=== PATIENT | male | born 1960 | race Caucasian/White ===

== ENCOUNTER 2017-09-03 19:22 | Emergency (ER) | payer OTHER ==
[~2017-09-03] VITALS: Ht 180.3 cm; Wt 111.1 kg
[2017-09-03] MEDS ORDERED: ACETAMINOPHEN 500 MG TABLET PO ONE (19:45)
[2017-09-03] MEDS ORDERED: LISI10TA2 PO (19:50)
[2017-09-03] MEDS ORDERED: CLOP75TA PO (19:50)
[2017-09-03] MEDS ORDERED: ATORVASTATIN CA80 MG PO (19:50)
[2017-09-03] MEDS ORDERED: CARV6.252 PO (19:50)
--- NOTE | 2017-09-03 19:50 | PHYS DOC ---
Adult General Chief Complaint Chief Complaint: MECHANICAL FALL HPI HPI Patient is a 57 year old nail presents to the emergency department status post fall. Patient states he was working the back of his truck, pulling a greg, the greg slipped and he fell backwards out of the truck. He states he was approximate 3 feet in the air. He reports that he landed on his upper back and struck his head. He states he had no loss of consciousness. He presents to the emergency department with complaints of head pain, neck pain, bilateral shoulder pain and right hip discomfort. He did ambulate into the emergency department without difficulty. He was observed removing his pants in a standing position and fully weight-bearing on the right lower extremity as well as left lower extremity without apparent pain. Patient reports that his fall occurred approximately 8 hours prior to arrival in the emergency department. He states he drove back from [facility] and then drove himself to the hospital. Review of Systems Review of Systems Constitutional: Denies fever or chills [] Eyes: Denies change in visual acuity, redness, or eye pain [] HENT: Headache with contusion to occiput Respiratory: Denies cough or shortness of breath [] Cardiovascular: No additional information not addressed in HPI [] GI: Denies abdominal pain, nausea, vomiting, bloody stools or diarrhea [] : Denies dysuria or hematuria [] Musculoskeletal: The lateral shoulder pain, right hip pain Integument: Denies rash or skin lesions [] Neurologic: Denies headache, focal weakness or sensory changes [] Endocrine: Denies polyuria or polydipsia [] Current Medications Current Medications Current Medications Medications (Trade) Dose Ordered Sig/Ok Start Time Stop Time Status Last Admin Dose Admin Acetaminophen (Tylenol) 1,000 mg 1X ONCE 09/03/17 19:45 09/03/17 19:50 DC 09/03/17 20:10 1,000 MG Allergies Allergies Allergies Coded Allergies Type Severity Reaction Last Updated Verified No Known Drug Allergies 09/03/17 No Physical Exam Physical Exam Constitutional: Well developed, well nourished, no acute distress, non-toxic appearance. [] HENT: Normocephalic, 3 cm abrasion contusion to posterior occiput, no palpable fractures, no step-off., bilateral external ears normal, oropharynx moist, no oral exudates, nose normal. [] Eyes: PERRLA, EOMI without pain, conjunctiva normal, no discharge. [] Neck: Normal range of motion, no midline or paracervical tenderness, supple, no stridor. [] Cardiovascular:Heart rate regular rhythm, no murmur [] Lungs & Thorax: Atraumatic, Bilateral breath sounds clear to auscultation [] Abdomen: Atraumatic, Bowel sounds normal, soft, no tenderness, no masses, no pulsatile masses. [] Skin: Warm, dry, no erythema, abrasion occiput Back: Atraumatic No tenderness, no CVA tenderness. [] Extremities: Bilateral shoulder exam, range of motion limited by pain, there is no apparent trauma, no bony tenderness on exam. Remainder of upper extremity exam unremarkable. Bilateral hip exam, atraumatic, full range of motion without difficulty. No point tenderness. Bilateral knee and ankle exam unremarkable. Neurovascular intact distally. Neurologic: Alert and oriented X 3, normal motor function, normal sensory function, no focal deficits noted. [] Psychologic: Affect normal, judgement normal, mood normal. [] Current Patient Data Vital Signs Vital Signs Date Time Temp Pulse Resp B/P (MAP) Pulse Ox O2 Delivery O2 Flow Rate FiO2 09/03/17 20:10 80 16 99 09/03/17 19:39 98.1 142/92 (109) Room Air 98.1 EKG EKG [] Radiology/Procedures Radiology/Procedures Bi-Lateral 3 view shoulder x-rays[, two-view right hip x-ray, reviewed, no acute bony abnormalities CT head and cervical spine without contrast reviewed by Dr. Ornelas, radiologist , CT head negative, CT cervical spine no fracture subluxation of the cervical vertebra is identified Course & Med Decision Making Course & Med Decision Making Pertinent Labs and Imaging studies reviewed. (See chart for details) []Patient takes Plavix for cornea stent placement, CT head negative per radiologist. Patient does have chronic bilateral upper extremity and shoulder discomfort. He states that he doesn't have his chronic pain every day but seems to have been exacerbated by his fall today. Patient will be discharged home with Tylenol with Codeine one by mouth every 6 hours when necessary for pain # 10 no refills. He is to follow-up with primary care in 2-3 days, sooner proms rise. Patient was given closed head injury precautions and told return the emergency department his symptoms or concerns. Patient verbalizes understanding was stable condition on discharge. Dragon Disclaimer Dragon Disclaimer This electronic medical record was generated, in whole or in part, using a voice recognition dictation system. Departure Departure Impression: Primary Impression: Fall Additional Impression: Contusion of scalp Disposition: 01 HOME, SELF-CARE Condition: STABLE Referrals: NO PCP (PCP) Patient Instructions: Facial or Scalp Contusion, Fall Prevention and Home Safety Scripts Acetaminophen With Codeine (TYLENOL WITH CODEINE #3 TABLET) 1 Each Tablet 1 TAB PO PRN Q6HRS Y for PAIN, #10 TAB Prov: TED ELLIOTT APRN 09/03/17 Problem Qualifiers Primary Impression: Fall Encounter type: initial encounter Qualified Codes: W19.XXXA - Unspecified fall, initial encounter Additional Impression: Contusion of scalp Encounter type: initial encounter Qualified Codes: S00.03XA - Contusion of scalp, initial encounter TED ELLIOTT APRN Sep 03, 2017 19:50
--- NOTE | 2017-09-03 20:30 | RAD ---
CT scan of the head without contrast 09/03/2017 Clinical History: Fall with head injury. Technique: Unenhanced, contiguous, 5 mm axial sections were obtained through the head. One or more of the following individualized dose reduction techniques were utilized for this study: 1. Automated exposure control. 2. Adjustment of the mA and/or kV according to patient size. 3. Use of iterative reconstruction technique. Findings: The ventricles and sulci are within normal limits in size and configuration. No focal area of abnormal attenuation is seen involving the brain parenchyma. No extra-axial fluid collection is seen. No skull fracture is seen. Impression: Negative study. CT scan of the cervical spine without contrast 09/03/2017 Clinical history: Neck pain post fall. Technique: Unenhanced, contiguous, 0.625 mm axial sections were obtained through the cervical spine. Axial, coronal and sagittal reconstructed images were obtained. One or more of the following individualized dose reduction techniques were utilized for this study: 1. Automated exposure control. 2. Adjustment of the mA and/or kV according to patient size. 3. Use of iterative reconstruction technique. Findings: Sagittal and coronal reconstructed images demonstrate mild straightening of the normal cervical lordosis. Degenerative changes consisting of disc space narrowing, vertebral endplate sclerosis and mild to moderate anterior and posterior vertebral body osteophyte formation are seen involving the mid and lower cervical disc spaces. No fracture or subluxation of the cervical vertebrae is seen. Degenerative changes are seen involving the uncovertebral and facet joints throughout the mid and lower cervical disc spaces. Impression: No fracture or subluxation of the cervical vertebra is identified. Electronically signed by: Luis Ornelas MD (09/03/2017 8:26 PM) [facility]
[2017-09-03] MEDS ORDERED: ACET-704 PO (20:35)
[2017-09-03 20:38] VITALS: BP 134/81
--- NOTE | 2017-09-04 08:45 | RAD ---
Left shoulder, 3 views, 09/03/2017: History: Fall, pain No fracture or dislocation is identified. There are mild degenerative changes at the AC joint. IMPRESSION: No acute bony abnormality is detected. Right shoulder, 3 views, 09/03/2017: There are degenerative changes at the AC joint. There are adjacent small calcifications. These demonstrate well-corticated margins and are most likely due to old trauma. No definite acute fracture or dislocation is seen. There is mild spurring along the glenoid rim. IMPRESSION: 1. Degenerative change. 2. Periarticular calcifications at the AC joint level are probably old. 3. No acute bony abnormality is detected.
--- NOTE | 2017-09-04 08:46 | RAD ---
Right hip, 2 views, 09/03/2017: History: Fall, pain No fracture or dislocation is identified. There is mild narrowing of the right hip joint and marginal spurring. The periarticular soft tissues are unremarkable. IMPRESSION: 1. Mild degenerative change at the right hip joint. 2. No acute bony abnormality is detected.
== END 2017-09-03 20:50 | disposition home or self-care (01) ==
LOC: ER 19:22
DX: S00.03XA Contusion of scalp, initial encounter (principal); M25.512 Pain in left shoulder; M25.511 Pain in right shoulder; M25.551 Pain in right hip; M54.2 Cervicalgia; W01.0XXA Fall on same level from slipping, tripping and stumbling without subsequent striking against object, initial encounter; Y93.89 Activity, other specified; Y99.8 Other external cause status; Y92.89 Other specified places as the place of occurrence of the external cause
CPT/HCPCS: 70450; 72125; 73030; 73502; 99284-25

== ENCOUNTER 2020-04-19 13:56 | Emergency (ER) | payer OTHER ==
[~2020-04-19] VITALS: Ht 180.3 cm; Wt 118.0 kg
[~2020-04-19 13:56] MED LIST: ACET-704 PO; ATORVASTATIN CA80 MG PO; CARV6.2511 PO; CLOP75TA PO; LISI10TA2 PO
[2020-04-19 14:01] VITALS: BP 138/91
--- NOTE | 2020-04-19 14:38 | PHYS DOC ---
Past Medical History Past Medical History: High Cholesterol, Hypertension, Other Additional Past Medical Histor: stents X 3 Past Surgical History: Knee Replacement, Other Additional Past Surgical Histo: angioplasty Smoking Status: Never Smoker Alcohol Use: Occasionally Drug Use: None General Adult EDM: Chief Complaint: LOWER BACK PAIN OR INJURY HPI: HPI: Patient is a 60 year old hypertension, high cholesterol, who presents to the ED today complaining of 9 out of 10 left low back pain radiating to the left lower extremity, symptoms began 3 weeks ago while working with a [employer]. Patient states he followed up with his own PCP on Friday who did lumbar spine x-rays that were negative and he was diagnosed with sciatica as well as lumbosacral strain. He presents today stating the pain has increased. Denies any loss of bowel/bladder function. He is hoping to get an MRI of the lumbar spine. Review of Systems: Review of Systems: Constitutional: Denies fever or chills. [] GI: Denies abdominal pain, nausea, vomiting, bloody stools or diarrhea. [] : Denies dysuria. [] Musculoskeletal: Reports left low back pain radiating to the left lower extremity Integument: Denies rash. [] Neurologic: Denies headache, focal weakness or sensory changes. [] ] Psychiatric: Denies depression or anxiety. [] Heart Score: Risk Factors: Risk Factors: DM, Current or recent (<one month) smoker, HTN, HLP, family history of CAD, obesity. Risk Scores: Score 0 - 3: 2.5% MACE over next 6 weeks - Discharge Home Score 4 - 6: 20.3% MACE over next 6 weeks - Admit for Clinical Observation Score 7 - 10: 72.7% MACE over next 6 weeks - Early Invasive Strategies Current Medications: Current Medications Medications (Trade) Dose Ordered Sig/Ok Start Time Stop Time Status Last Admin Dose Admin Diazepam (Valium) 5 mg 1X ONCE 04/19/20 14:30 04/19/20 14:31 UNV Ketorolac Tromethamine (Toradol Im) 60 mg 1X ONCE 04/19/20 14:30 04/19/20 14:31 UNV Morphine Sulfate (Morphine Sulfate) 5 mg 1X ONCE 04/19/20 14:30 04/19/20 14:31 UNV Prednisone (Prednisone) 60 mg 1X ONCE 04/19/20 14:30 04/19/20 14:31 UNV Allergies: Allergies: Allergies Coded Allergies Type Severity Reaction Last Updated Verified No Known Drug Allergies 09/03/17 No Physical Exam: PE: Constitutional: Well developed, well nourished, no acute distress, non-toxic appearance. [] Abdomen: Bowel sounds normal, soft, no tenderness, no masses, no pulsatile masses. [] Skin: Warm, dry, no erythema, no rash. [] Back: Diffuse paraspinal muscle tenderness to the left lumbar spine, no midline lumbar spine tenderness, no CVA tenderness. Positive straight leg raise to the left. Extremities: No tenderness, no cyanosis, no clubbing, ROM intact, no edema. [] Neurologic: Alert and oriented X 3, normal motor function, normal sensory function, no focal deficits noted. [] Psychologic: Affect normal, judgement normal, mood normal. [] Current Patient Data: Vital Signs: Vital Signs Date Time Temp Pulse Resp B/P (MAP) Pulse Ox O2 Delivery O2 Flow Rate FiO2 04/19/20 14:01 98.3 103 18 138/91 (107) 98 Room Air 98.3 EKG: EKG: [] Radiology/Procedures: Radiology/Procedures: [] Course & Med Decision Making: Course & Med Decision Making Pertinent Labs and Imaging studies reviewed. (See chart for details) This is a 60-year-old male patient presenting to the ED today with left low back pain radiating to the left lower extremity, symptoms began 3 weeks ago after an injury. Patient had negative x-rays on Friday, he presents today hoping to get MRI of the lumbar spine. He has no cauda equina syndrome symptoms hence does not meet emergency criteria for MRI of the lumbar spine. Offered pain management and following up with the PCP for MRI. He has an appointment tomorrow. Willard Disclaimer: Willard Disclaimer: This electronic medical record was generated, in whole or in part, using a voice recognition dictation system. Departure Departure Impression: Primary Impression: Sciatica, left side Additional Impression: Back pain Qualified Codes: M54.42 - Lumbago with sciatica, left side Disposition: HOME, SELF-CARE Condition: STABLE Referrals: NO PCP (PCP) Please follow up with your doctor tomorrow Patient Instructions: Back Pain, Adult, Sciatica with Rehab-SportsMed Additional Instructions: You were evaluated in the emergency room for back pain with sciatica. Please follow-up with your primary care doctor in the course of this week or next week. Take the prescribed medications as ordered. Scripts Methylprednisolone (MEDROL) 4 Mg Tab.ds.pk 1 PKG PO UD, #1 PKG Prov: RUT DIAZ APRN 04/19/20 Cyclobenzaprine Hcl (CYCLOBENZAPRINE HCL) 10 Mg Tablet 1 TAB PO TID, #30 TAB Prov: RUT DIAZ APRN 04/19/20 Hydrocodone/Apap 5-325 (NORCO 5-325 TABLET) 1 Each Tablet 1 TAB PO Q6HRS, #10 TAB Prov: RUT DIAZ APRN 04/19/20 Justicifation of Admission Dx: Justifications for Admission: Justification of Admission Dx: N/A RUT DIAZ APRN Apr 19, 2020 14:38
[2020-04-19] MEDS ORDERED: HYDR-3164 PO (14:45)
[2020-04-19] MEDS ORDERED: CYCL10TA2 PO (14:45)
[2020-04-19] MEDS ORDERED: METH4TAB2 PO (14:45)
[2020-04-19] MEDS ORDERED: MORPHINE SULFATE 10 MG/ML VIAL. IM ONE (15:00)
[2020-04-19] MEDS ORDERED: diazePAM 5 MG TABLET PO ONE (15:00)
[2020-04-19] MEDS ORDERED: predniSONE 20 MG TABLET PO ONE (15:00)
[2020-04-19] MEDS ORDERED: KETOROLAC 60 MG/2 ML VIAL. IM ONE (15:00)
== END 2020-04-19 15:05 | disposition home or self-care (01) ==
LOC: ER 13:56
DX: M54.42 Lumbago with sciatica, left side (principal); E78.00 Pure hypercholesterolemia, unspecified; I10 Essential (primary) hypertension; Z95.5 Presence of coronary angioplasty implant and graft
CPT/HCPCS: 96372; 99284; J1885; J2270; J7512